=== PATIENT | male | born 1940 | race Caucasian/White ===

== ENCOUNTER 2016-11-17 12:26 | Inpatient (IN) | payer OTHER ==
[~2016-11-17] VITALS: Ht 170.2 cm; Wt 97.1 kg
--- NOTE | ~2016-11-17 | EKG ---
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
--- NOTE | ~2016-11-17 | H ---
[facility] [place] [address] HISTORY AND PHYSICAL Name: SELAM ROQUE Room #: 200-I [facility] IN ..#: [id number] Admission: 11/17/16 Attend Phys: Gabriel Ferrera MD Discharge: 11/20/16 Date of : 40 Report #: [id number] THIS REPORT FOR: //name// CC: Gabriel Ferrera DATE OF SERVICE: 11/17/2016 DATE OF SERVICE: 11/17/2016 CHIEF COMPLAINT: Swelling and shortness of air. HISTORY OF PRESENT ILLNESS: The patient is a 75-year-old male well known to me. He has been followed by Dr. Noriega recently with some congestive heart failure, was treated with some increasing oral dose of Lasix, did not get adequate results. He is having persistent swelling and shortness of air shortness of air. He has denied any chest pain. PAST MEDICAL HISTORY: Significant for: 1. Coronary artery disease with bypass graft in 1983. 2. Hypertension. 3. Sleep apnea. 4. Peripheral vascular disease with stents x 2. 5. Aortic stent in 2006. 6. Hyperlipidemia. 7. IVC occlusion. 8. Prior compression fracture. MEDICATIONS: Include Savaysa 60 mg a day, Klonopin 0.5 mg at bedtime, diclofenac 75 mg b.i.d., Symbicort 2 puffs b.i.d., Zoloft 100 mg a day, hydrocodone p.r.n. pain, Lasix 40 mg a day, Accupril 20 mg a day, aspirin 81 mg a day, potassium 10 mEq a day, multivitamin daily, omega-3 fish oil daily, Protonix 40 mg a day, primidone 50 mg a day, simvastatin 20 mg a day, Hytrin 5 mg a day. ALLERGIES: No known drug allergies. SOCIAL HISTORY: Nonsmoker, nondrinker, no recreational drugs. REVIEW OF SYSTEMS: CONSTITUTIONAL: No fever or chills. HEENT: No headaches or visual changes. CHEST: No tightness in the chest. He does have shortness of breath, no sputum production. GASTROINTESTINAL: No nausea, vomiting, diarrhea or constipation. GENITOURINARY: No burning or frequency. EXTREMITIES: The massive swelling and the tingling. [address] [address] HISTORY AND PHYSICAL Name: ROSALIEKIRILLALTAGRACIAMACO Hasmukh [facility] [id number] Admission: 11/17/16 Attend Phys: Gabriel Ferrera MD Discharge: 11/20/16 Date of : 40 Report #: [id number] PHYSICAL EXAMINATION: VITAL SIGNS: In the ER, blood pressure 150/73, pulse was 70, respiratory rate 16 and O2 sat 100% on room air. He is afebrile. GENERAL: The patient is awake, alert, in no acute distress. HEENT: His mucous membranes are moist. NECK: Supple, without adenopathy, thyromegaly or bruits. CHEST: Shows basilar crackles. CARDIOVASCULAR: Regular, no murmur. ABDOMEN: Obese with soft, no masses. Bowel sounds are active. EXTREMITIES: Show 3+ edema. Pulses are intact. SKIN: Shows no skin tears. LABORATORY DATA: EKG showed a sinus rhythm, rate of 60, no ST segment changes. WBC 6.3, hemoglobin 13.7, hematocrit 41.0, platelet count 216, 78 segs, 12 lymphs. ASSESSMENT AND PLAN: 1. Acute systolic heart failure on chronic. He is going to be admitted, started on IV Lasix drip. Consulted cardiology for his recommendation. We will start the drip and we will follow electrolytes. We will get chemistry panel and BNP which are pending. 2. 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 We will consult Dr. Mcclelland to evaluate this as well. 3. Anxiety. We will resume his home medications. 4. Hypertension. We will monitor blood pressure on the Lasix drip. <ELECTRONICALLY SIGNED> By: Gabriel Ferrera MD 11/23/16 1250 1450 1518 Gabriel Ferrera MD /nt
[~2016-11-17 12:26] MED LIST changes: -ALDACTONE25 MG PO; -ALTACE10 MG PO; -CARVEDILOL3.125 MG PO; -CLONAZEPAM 1 MG1 M1 PO; -DEMADEX20 MG PO; -DESMOPRESSIN A0.2 M2 PO; -KLONOPIN0.5 MG PO
[2016-11-17 12:27] VITALS: BP 150/73
[2016-11-17 13:15] LABS: ABSOLUTE NEUTROPHILS 4.9 thou/uL (1.4-8.2); BASOPHILS 0.7 % (0.0-2.0); EOSINOPHILS 0.6 % (0.0-3.0); HEMOGLOBIN 13.7 gm/dL (14.0-18.0); LYMPHOCYTES 12.4 % (24.0-44.0); MANUAL DIFF NO; MCH 30.4 pg (26.0-34.0); MCHC 33.3 % (28.0-37.0); MCV 91.3 fL (80.0-100.0); MONOCYTES 8.3 % (1.0-8.0); PLATELET COUNT 216 thou/uL (150-400); WBC 6.3 thou/uL (4.0-11.0)
[2016-11-17 13:31] VITALS: BP 158/99
[2016-11-17 13:40] LABS: ALKALINE PHOSPHATASE 75 U/L (46-116); ANION GAP 9 mmol/L (7-16); BUN 34 mg/dL (7-18); CALCIUM 8.9 mg/dL (8.5-10.1); CHLORIDE 99 mmol/L (98-107); CO2 27 mmol/L (21-32); GLUCOSE 89 mg/dL (70-99); NT-PRO BRAIN NAT PEPTIDE 107 pg/mL (<300); SGOT 20 U/L (15-37); SGPT 14 U/L (30-65); SODIUM 135 mmol/L (136-145); TOTAL BILIRUBIN 0.6 mg/dL (<0.1-1.0); TOTAL PROTEIN 6.7 g/dL (6.4-8.2); TROPONIN-I < 0.04 ng/mL (<0.04-0.07)
[2016-11-17 13:47] LABS: ALBUMIN 3.6 g/dL (3.4-5.0)
[2016-11-17 14:00] VITALS: BP 118/61
[2016-11-17] MEDS ORDERED: CLONAZEPAM 1 MG1 M1 PO (14:57)
[2016-11-17] MEDS ORDERED: KLONOPIN0.5 MG PO (14:59)
[2016-11-17] MEDS ORDERED: ALDACTONE25 MG PO (15:08)
[2016-11-17] MEDS ORDERED: DEMADEX20 MG PO (15:09)
[2016-11-17 17:00] VITALS: BP 111/52; BP 111/57
[2016-11-17 19:02] VITALS: BP 119/62
[2016-11-18 00:06] VITALS: BP 114/69
[2016-11-18 03:15] VITALS: BP 107/62
[2016-11-18 04:13] LABS: CALCIUM 8.9 mg/dL (8.5-10.1); CREATININE 1.5 mg/dL (0.6-1.3)
[2016-11-18 07:20] VITALS: BP 128/59
[2016-11-18 16:15] VITALS: BP 86/40
[2016-11-18 18:14] VITALS: BP 113/54
[2016-11-18 19:30] VITALS: BP 17/42
[2016-11-19] VITALS: BP 100/48
[2016-11-19 03:30] VITALS: BP 101/50
[2016-11-19 07:35] VITALS: BP 123/48
[2016-11-19 09:33] LABS: CREATININE 1.8 mg/dL (0.6-1.3); POTASSIUM 3.3 mmol/L (3.5-5.1)
[2016-11-19] MEDS ORDERED: DEMADEX20 MG PO (09:36)
[2016-11-19] MEDS ORDERED: CARVEDILOL3.125 MG PO (09:36)
[2016-11-19] MEDS ORDERED: ALTACE10 MG PO (09:36)
[2016-11-19 11:10] VITALS: BP 99/46
[2016-11-19 15:30] VITALS: BP 116/54
[2016-11-19 19:21] VITALS: BP 120/59
[2016-11-20 04:06] VITALS: BP 119/57
[2016-11-20 04:24] LABS: CALCIUM 9.1 mg/dL (8.5-10.1); CREATININE 1.4 mg/dL (0.6-1.3); POTASSIUM 3.9 mmol/L (3.5-5.1)
[2016-11-20 07:05] VITALS: BP 136/62
[2016-11-20 11:50] VITALS: BP 140/65
[2016-11-20 14:41] VITALS: BP 140/65
[2016-12-14] MEDS ORDERED: DESMOPRESSIN A0.2 M2 PO (17:05)
== END 2016-11-20 16:43 | disposition home health service (06) | DRG 682 ==
LOC: ER 12:26 → EROBS 12:48 → 2N 12:48
PROVIDERS: Emergency Medicine; Family Medicine
PROC: 5A09457 Assistance with Respiratory Ventilation, 24-96 Consecutive Hours, Continuous Positive Airway Pressure (ICD-10-PCS; principal; 2016-11-18)
DX: N17.9 Acute kidney failure, unspecified (principal); I50.23 Acute on chronic systolic (congestive) heart failure; I42.9 Cardiomyopathy, unspecified; I73.9 Peripheral vascular disease, unspecified; I11.0 Hypertensive heart disease with heart failure; I87.2 Venous insufficiency (chronic) (peripheral); E78.00 Pure hypercholesterolemia, unspecified; E87.6 Hypokalemia; I65.29 Occlusion and stenosis of unspecified carotid artery; I25.10 Atherosclerotic heart disease of native coronary artery without angina pectoris; E78.5 Hyperlipidemia, unspecified; F41.9 Anxiety disorder, unspecified; Z95.1 Presence of aortocoronary bypass graft; Z79.899 Other long term (current) drug therapy; Z98.890 Other specified postprocedural states; Z95.5 Presence of coronary angioplasty implant and graft
CPT/HCPCS: 10194

== ENCOUNTER → 2016-11-17 | Outpatient (CLI) | payer OTHER ==
[~2016-11-17] MED LIST: ALDACTONE25 MG PO; ALTACE10 MG PO; ASPIR 8181 MG PO; ASPIRIN325 PO; CARVEDILOL3.125 MG PO; CENTRUM SILVER1 EAC2 PO; CLONAZEPAM 1 MG1 M1 PO; CLONAZEPAM PO; COUMADIN; DEMADEX20 MG PO; DESMOPRESSIN A0.2 M2 PO; DICLOFENAC SODI75 M1 PO; FLOMAX PO; FUROSEMIDE 40 M40 M1 PO; HYTRIN 5 M5 MG/1 CAP PO; KETOCONAZOLE60 GM TP; KLONOPIN0.5 MG PO; KLOR-CON 1010 MEQ PO; KLOR-CON PO; NORCO 5-325 TA1 EACH PO; OMEGA-31000 M1 PO; PRIMIDONE50 MG PO; PROTONIX40 M1 PO; QUINAPRIL 20 MG20 MG PO; SAVAYSA60 MG PO; SYMBICORT160 MCG/4. INH; ZOCOR 20 MG TAB20 M1 PO; ZOCOR20 MG PO; ZOLOFT50 MG PO
[2016-11-17 10:36] LABS: ABSOLUTE NEUTROPHILS 5.5 thou/uL (1.4-8.2); BASOPHILS 0.7 % (0.0-2.0); HEMATOCRIT 40.3 % (42.0-52.0); HEMOGLOBIN 13.5 gm/dL (14.0-18.0); LYMPHOCYTES 11.4 % (24.0-44.0); MCH 30.4 pg (26.0-34.0); MCHC 33.4 % (28.0-37.0); MCV 90.9 fL (80.0-100.0); MONOCYTES 7.9 % (1.0-8.0); PLATELET COUNT 234 thou/uL (150-400); RBC 4.43 mil/uL (4.50-6.00); RDW 14.9 % (10.5-14.5)
[2016-11-17 10:37] LABS: MANUAL DIFF NO
[2016-11-17 10:49] LABS: CALCIUM 9.1 mg/dL (8.5-10.1); CREATININE 1.3 mg/dL (0.6-1.3); POTASSIUM 4.4 mmol/L (3.5-5.1)
== END ==
LOC: CAT 10:01
PROVIDERS: Nuclear Medicine Nuclear Cardiology
DX: R10.2 Pelvic and perineal pain (principal); R14.0 Abdominal distension (gaseous); R10.30 Lower abdominal pain, unspecified

== ENCOUNTER 2016-11-21 21:47 | Inpatient (IN) | payer OTHER ==
[~2016-11-21] VITALS: Ht 170.2 cm; Wt 92.5 kg
--- NOTE | ~2016-11-21 | EKG ---
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
--- NOTE | ~2016-11-21 | HC ---
[facility] [place] [address] CONSULTATION Name: SELAM ROQUE Room #: 429-P [facility] IN .R.#: [id number] Admission: 11/22/16 Attend Phys: Gabriel Ferrera MD Discharge: 11/24/16 Date of : 40 Report #: [id number] THIS REPORT FOR: //name// CC: Gabriel Ferrera DATE OF SERVICE: 11/24/2016 ATTENDING PHYSICIAN: Rick Osorio M.D. RADIO TOWER TECHNICIAN: Gabriel Banks, PhD. CLINICAL PRESENTATION: The patient is a 75-year-old male admitted to [facility] for evaluation and treatment of orthostatic hypotension with worsening acute kidney injury. He was initially admitted to the [facility] Center for evaluation and treatment of heart failure with edema. He was discharged home. However, his condition exacerbated as a result of 2 syncopal episodes. He was subsequently brought back to the hospital for evaluation and treatment. PAST MEDICAL HISTORY: Includes chronic peripheral edema, hypertension, peripheral vascular disease with iliac stents, hyperlipidemia, anxiety, sleep apnea, coronary artery disease status post bypass grafting, melanoma of the face, diastolic heart failure, inferior vena cava occlusion, and prior kyphoplasty at L1. A complete description of his medical condition and history along with medications can be found in his medical record. Neuropsychological consultation was requested to provide assistance in the assessment of cognitive and emotional status and to provide recommendations and services. Prior to this deterioration in his medical condition, he was living independently at home with his . The patient has 4 children. He has 2 sisters. He is a high school graduate. 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 A longstanding history of anxiety disorder is described. The patient has a history of depression that he was treated for in the past. He indicates having been in an eating disorder unit at the [facility] in 1987. The patient was morbidly obesity. His weight looks within normal limits at this time. TECHNIQUES UTILIZED: Clinical interview, review of medical records, staff consultation and behavioral observation. EXAMINATION FINDINGS: The patient was alert and cooperative with the assessment. There is no evidence of aphasia. His thoughts were logical and goal oriented. There is no evidence of thought disorder. He does not report auditory or visual hallucinations. There is no report of suicidal ideation. He indicates a subjective anxiety in regard to his wellbeing. He is going to a [facility] [address] [place] [address] CONSULTATION Name: SELAM ROQUE Room #: 429-P [facility] IN ..#: [id number] Admission: 11/22/16 Attend Phys: Gabriel Ferrera MD Discharge: 11/24/16 Date of : 40 Report #: [id number] more longer term snf placement from the hospital and was hoping to be able to return home. The patient does appear to be anxious in regard to his cognitive function. He does not report concern about cognition, however, uncertainty about the memory is suggested by his presentation. A formal and cognitive assessment was not completed. He does not report difficulty with sleep, appetite, or memory. However, he does acknowledge difficulty with word finding. Tiredness and fatigue is also suggested along with increase in irritability. DIAGNOSTIC IMPRESSION: 1. Anxiety disorder, unspecified with depression. 2. Possible neurocognitive disorder - extent to be determined. RECOMMENDATIONS: Continued psychological services upon his discharge will likely be of benefit. The patient should also arrange for an outpatient assessment of neuropsychological testing. Clarification of neurocognitive status is suggested at this time. Thank you very much for allowing me to provide the consultation on this patient. <ELECTRONICALLY SIGNED> By: Gabriel Banks, PhD 12/03/16 1918 1830 0809 Garbiel Banks, PhD /nt
--- NOTE | ~2016-11-21 | H ---
[facility] [place] [address] HISTORY AND PHYSICAL Name: SELAM ROQUE Room #: 429-P [facility] IN .R.#: [id number] Admission: 11/22/16 Attend Phys: Gabriel Ferrera MD Discharge: Date of : 40 Report #: [id number] THIS REPORT FOR: //name// CC: Gabriel Ferrera DATE OF SERVICE: 11/22/2016 CHIEF COMPLAINT: Syncope. HISTORY OF PRESENT ILLNESS: The patient is a 75-year-old male who had just been discharged on the after a short stay for heart failure and edema and diuresed. He had had some mild BRANDON and orthostasis before he left but that actually improved, and he was ambulating well. His pressures were stable and his creatinine improved prior to discharge. Apparently after discharging to home, he had 2 syncopal events. The first time, 911 was called, and he refused to come to the hospital. The patient put himself back to bed. He got up another time to go to the bathroom and had another syncopal event. The patient was brought to the hospital for evaluation of this syncope. The patient states he had been eating at the time. PAST MEDICAL HISTORY: Significant for: 1. Chronic peripheral edema. 2. Hypertension. 3. Peripheral vascular disease with iliac stents. 4. Hyperlipidemia. 5. Anxiety. 6. Sleep apnea. 7. Coronary artery disease, status post bypass grafting. 8. Melanoma of his face recently. 9. Diastolic heart failure. 10. Inferior vena cava occlusion. 11. Prior kyphoplasty at L1. MEDICATIONS: Hydrocodone p.r.n. pain, Savaysa 60 mg a day, clonazepam 1 mg at bedtime and 0.5 mg p.r.n., Aldactone 25 mg a day, torsemide 20 mg a day, diclofenac 75 mg b.i.d., Zoloft 100 mg a day, aspirin 81 mg a day, primidone 50 mg a day, simvastatin 20 mg a day and terazosin 5 mg a day. ALLERGIES: No known drug allergies. SOCIAL HISTORY: He is a nonsmoker and nondrinker, lives independently. REVIEW OF SYSTEMS: CONSTITUTIONAL: No fevers or chills. HEENT: No headaches or visual changes. [address] [address] HISTORY AND PHYSICAL Name: SELAM ROQUE Hasmukh Room #: 429-P [facility] IN [facility].#: [id number] Admission: 11/22/16 Attend Phys: Gabriel Ferrera MD Discharge: Date of : 40 Report #: [id number] CHEST: No chest pain, tightness in his chest, shortness of breath, cough or sputum production. GASTROINTESTINAL: No nausea or vomiting. GENITOURINARY: No burning or frequency. EXTREMITIES: No new trauma. He does have the chronic edema, which is unchanged. His pulses are intact. Feet are warm. PHYSICAL EXAMINATION: VITAL SIGNS: His blood pressure was 122/56 but he dropped down with standing to 100/50. His pulse was 53, his respiratory rate was 12. He is afebrile, O2 sats 100%. GENERAL: He is currently sleeping with his nasal BiPAP on. He does arouse, but is in no acute distress. HEENT: His mucous membranes are moist. NECK: Supple without adenopathy, thyromegaly or bruits. CHEST: Clear to auscultation bilaterally. CARDIOVASCULAR: Regular rhythm without murmur. ABDOMEN: Soft, no masses. Bowel sounds are active. He is obese. There is no hepatosplenomegaly. EXTREMITIES: Showed chronic edema with venous insufficiency changes, no new wounds, no worsening of edema. DIAGNOSTIC DATA: His EKG showed a sinus rhythm with a rate of 50, first degree AV block, no acute ischemic changes. LABORATORY DATA: Sodium 136, potassium 3.9, chloride 96, bicarbonate 31, BUN 42, creatinine 2.0, which is increased from the day before at 1.4, glucose is 139. Mag is 2.3, AST 28, ALT 40, alkaline phosphatase 95. CK-MB is 1.8. Troponin is less than 0.04. BNP 373. Albumin 3.8. WBC is 15.7, hemoglobin 14.0, hematocrit 42.5, platelet count 267, 89 segs and 6 lymphs. Chest x-ray shows no acute change. ASSESSMENT: Orthostatic hypotension with worsening acute kidney injury. PLAN: We will go ahead and admit the patient. We will start him on IV fluids and hold his diuretics. I suspect this should recover with proper hydration. He will clearly need to go to a skilled unit, however, in light of his recurrent syncope. We will resume his other home meds for his chronic conditions. <ELECTRONICALLY SIGNED> By: Gabriel Ferrera MD 11/23/16 1250 0648 0833 Gabriel Ferrera MD /nt
[~2016-11-21 21:47] MED LIST changes: +ALDACTONE25 MG PO; +ALTACE10 MG PO; +CARVEDILOL3.125 MG PO; +CLONAZEPAM 1 MG1 M1 PO; +DEMADEX20 MG PO; +KLONOPIN0.5 MG PO
[2016-11-21 21:48] VITALS: BP 122/56
[2016-11-21 22:09] LABS: HEMATOCRIT 42.5 % (42.0-52.0); MCH 30.1 pg (26.0-34.0); MCV 91.2 fL (80.0-100.0); PLATELET COUNT 267 thou/uL (150-400); RBC 4.66 mil/uL (4.50-6.00); RDW 14.5 % (10.5-14.5); WBC 15.7 thou/uL (4.0-11.0)
[2016-11-21 22:14] LABS: MANUAL DIFF YES
[2016-11-21 22:31] LABS: ALBUMIN 3.8 g/dL (3.4-5.0); ALKALINE PHOSPHATASE 95 U/L (46-116); ANION GAP 9 mmol/L (7-16); BUN 42 mg/dL (7-18); CALCIUM 9.3 mg/dL (8.5-10.1); CHLORIDE 96 mmol/L (98-107); CO2 31 mmol/L (21-32); GLUCOSE 139 mg/dL (70-99); MAGNESIUM 2.3 mg/dL (1.8-2.4); NT-PRO BRAIN NAT PEPTIDE 373 pg/mL (<300); POTASSIUM 3.9 mmol/L (3.5-5.1); SGOT 28 U/L (15-37); SGPT 40 U/L (30-65); SODIUM 136 mmol/L (136-145); TOTAL BILIRUBIN 0.7 mg/dL (<0.1-1.0); TOTAL PROTEIN 7.5 g/dL (6.4-8.2); TROPONIN-I < 0.04 ng/mL (<0.04-0.07)
[2016-11-21 23:51] LABS: TOTAL CELL COUNT 100
[2016-11-22] VITALS (11 sets, daily range): BP systolic 89–171; BP diastolic 39–64
[2016-11-23 05:00] VITALS: BP 112/32
[2016-11-23 05:46] LABS: CALCIUM 8.4 mg/dL (8.5-10.1); CREATININE 1.2 mg/dL (0.6-1.3); POTASSIUM 4.1 mmol/L (3.5-5.1)
[2016-11-23 08:26] VITALS: BP 141/65
[2016-11-23 17:05] VITALS: BP 137/42
[2016-11-23 20:00] VITALS: BP 132/38
[2016-11-24 04:46] VITALS: BP 152/58
[2016-11-24 07:56] VITALS: BP 173/58
[2016-12-14] MEDS ORDERED: DESMOPRESSIN A0.2 M2 PO (17:05)
== END 2016-11-24 16:52 | DRG 682 ==
LOC: ER 21:47 → EROBS 23:33 → ER 23:33 → 4E 11-22 00:29
PROVIDERS: Emergency Medicine; Family Medicine
DX: N17.9 Acute kidney failure, unspecified (principal); I50.33 Acute on chronic diastolic (congestive) heart failure; I13.0 Hypertensive heart and chronic kidney disease with heart failure and stage 1 through stage 4 chronic kidney disease, or unspecified chronic kidney disease; I95.1 Orthostatic hypotension; E86.9 Volume depletion, unspecified; I25.10 Atherosclerotic heart disease of native coronary artery without angina pectoris; N18.9 Chronic kidney disease, unspecified; F32.9 Major depressive disorder, single episode, unspecified; I73.9 Peripheral vascular disease, unspecified; G47.30 Sleep apnea, unspecified; E78.5 Hyperlipidemia, unspecified; F41.9 Anxiety disorder, unspecified; I87.2 Venous insufficiency (chronic) (peripheral); Z79.899 Other long term (current) drug therapy; Z95.1 Presence of aortocoronary bypass graft; Z79.82 Long term (current) use of aspirin
CPT/HCPCS: 10183

== ENCOUNTER 2017-01-26 09:32 | Inpatient (IN) | payer OTHER ==
[~2017-01-26] VITALS: Ht 170.2 cm; Wt 83.7 kg
[2017-01-26] VITALS (7 sets, daily range): BP systolic 130–179; BP diastolic 43–68
--- NOTE | ~2017-01-26 | HC ---
[facility] [place] [address] CONSULTATION Name: SELAM ROQUE Room #: 419-P [facility] IN ..#: [id number] Admission: 01/26/17 Attend Phys: Gabriel Ferrera MD Discharge: Date of : 40 Report #: [id number] THIS REPORT FOR: //name// CC: Gabriel Ferrera GI CONSULTATION REASON FOR CONSULTATION: Rectal bleeding. HISTORY OF PRESENT ILLNESS: The patient is a 76-year-old white male with multiple medical problems, admitted 01/26/2017 with increased weakness and healthcare-associated pneumonia. He is primarily bedridden and during his hospitalization with straining was able to have a bowel movement yesterday with bright red blood per rectum noted by nursing staff. He would not have noted any problems with rectal bleeding prior to his admission. He does struggle with constipation as his activity is limited. He has no significant abdominal pain. He does not well recall timing of his last colonoscopy that was done many years ago, but was advised that he would not need another one. He is unaware of any previous history of GI bleeding in the past. PAST MEDICAL HISTORY: He does have multiple medical problems including coronary artery disease leading to previous coronary artery bypass surgery in 1983. He does have peripheral vascular disease and had undergone iliac and aortic stent placement in December 2006. He may also have undergone additional iliac stents. He does have hypertension, hyperlipidemia, chronic anxiety, recent suicidal ideation, congestive heart failure, sleep apnea, coronary venous insufficiency. He has a history of melanoma. HOME MEDICATIONS: [place] one tablet q. 6 hours p.r.n., Savaysa (edoxaban) 60 mg per day, clonazepam 1 mg at bedtime and 0.5 mg p.r.n., Lexapro 20 mg per day, Demadex 20 mg p.o. b.i.d., tramadol 50 mg p.r.n., aspirin 81 mg per day, primidone 50 mg per day, simvastatin 20 mg per day. CURRENT MEDICATIONS: During this hospitalization include pantoprazole 40 mg IV b.i.d. started January 31, primidone 50 mg p.o. at bedtime, clonazepam 1 mg at bedtime, citalopram 20 mg at bedtime, aspirin 81 mg each day, Zosyn 3.375 grams IV q. 6 hours, torsemide 20 mg p.o. b.i.d., clonazepam 0.5 mg per day, hydrocodone with acetaminophen p.r.n., Zofran p.r.n. ALLERGIES: No known drug allergies. SOCIAL HISTORY: He does not currently smoke cigarettes or drink alcohol. REVIEW OF SYSTEMS: He has had no documented fevers or chills. He feels very weak, but does not have significant shortness of breath, wheezing or cough. He has had no significant chest pain. He has [place] [address] CONSULTATION Name: ROSALIEKIRILLSELAM Room #: 419-P [facility] IN M.R.#: [id number] Admission: 01/26/17 Attend Phys: Gabriel Ferrera MD Discharge: Date of : 40 Report #: [id number] He denies nausea or vomiting. He does have chronic peripheral edema. He has chronic knee pain and has had frequent falls and would state that he is limited to his bed at this time. PHYSICAL EXAMINATION: GENERAL: He appears elderly in no acute distress at rest in bed, afebrile. VITAL SIGNS: Blood pressure 130/76, pulse 63. HEENT: No scleral icterus. HEART: Rate and rhythm regular. LUNGS: Clear to auscultation. ABDOMEN: Soft, mildly obese with no obvious hepatosplenomegaly or palpable mass. No obvious abdominal bruits are noted. EXTREMITIES: He has no focal abdominal pain. He does have 1-2+ peripheral edema with brawny skin changes of the lower extremities. LABORATORY STUDIES: On January 26, white blood cell count 7200, hemoglobin 15.5, platelet count 290,000. Hemoglobin did decrease to 13.8 on January 30. IMPRESSION: 1. Rectal bleeding after straining and problems with constipation likely represents rectal outlet bleeding, although all other causes for lower GI bleeding remain in the differential. 2. Healthcare-associated pneumonia. 3. Weakness with very limited mobility. 4. Peripheral vascular disease. 5. Coronary artery disease with previous bypass surgery. RECOMMENDATIONS: 1. Monitor symptoms and blood counts after resolution of constipation. 2. Continued rectal bleeding. Further evaluation might be considered understanding potential risks involved with multiple other associated medical problems. By: [id number] Morgan Rico MD /nt
--- NOTE | ~2017-01-26 | H ---
[facility] [place] [address] HISTORY AND PHYSICAL Name: SELAM ROQUE Room #: 419-P [facility] IN M.R.#: [id number] Admission: 01/26/17 Attend Phys: Gabriel Ferrera MD Discharge: 02/03/17 Date of : 40 Report #: [id number] THIS REPORT FOR: //name// CC: Gabriel Ferrera DATE OF SERVICE: 01/26/2017 CHIEF COMPLAINT: Weakness. HISTORY OF PRESENT ILLNESS: The patient is a 76-year-old male, well known to me, who states he has not been feeling well for the last several days. He had been not out of the bed for over 48 hours per his family. He states he had fallen a couple of times, had some left knee pain. He had just became very weak, was urinating on himself, could not get out of bed. The patient also had been apparently having suicidal thoughts. He had been searching in the internet for weapons and ways to hurt himself. He had been hospitalized not too long ago with frequent falls and diastolic heart failure. He denies any chest pain at this time. He does have more shortness of breath. There was some concern over some frontal lobe dementia and he was supposed to be seen by Neurology in the outpatient setting on the , but he could not make it. PAST MEDICAL HISTORY: Significant for: 1. Hypertension. 2. Congestive heart failure. 3. Coronary bypass grafting. 4. Poor sleep apnea. 5. Peripheral vascular disease. 6. Iliac and aortic stents. 7. Rotator cuff repair. 8. Chronic venous insufficiency after his CABG. 9. Hyperlipidemia. 10. IVC occlusion. 11. Anxiety. 12. Peripheral artery disease. 13. Recent melanoma on right side of his face. CURRENT MEDICATIONS: Carvedilol 3.125 mg b.i.d.; Altace 10 mg a day; [place] p.r.n.; Savaysa 60 mg a day; clonazepam 1 mg a day, 0.5 mg p.r.n.; Lexapro 20 mg a day; Demadex 20 mg b.i.d.; Ultram 50 mg a day; aspirin 81 mg a day; Primidone 50 mg b.i.d.; simvastatin 20 mg a day. ALLERGIES: No known drug allergies. SOCIAL HISTORY: He does live with his . He is a nonsmoker and nondrinker. No recreational drugs. [address] [address] HISTORY AND PHYSICAL Name: SELAM ROQUE Hasmukh Room #: 419-P [facility]#: [id number] Admission: 01/26/17 Attend Phys: Gabriel Ferrera MD Discharge: 02/03/17 Date of : 40 Report #: [id number] REVIEW OF SYSTEMS: CONSTITUTIONAL: No fevers or chills. HEENT: No headaches or visual change. CHEST: He denies any chest pains or cough. GASTROINTESTINAL: No nausea, vomiting, diarrhea or constipation. GENITOURINARY: No burning or frequency, but he does have incontinence. EXTREMITIES: He has chronic swelling and knee pain. SKIN: No new wounds or rashes. NEUROLOGIC: He has generalized confusion, irritability, suicidal thoughts. No focal numbness or weakness. PHYSICAL EXAMINATION: VITAL SIGNS: In the ER, blood pressure 169/64, pulse was 57, respiratory rate 11, O2 sat was 93%. At the time of my evaluation, he had a flat affect. GENERAL: The patient is awake and alert. He denied any focal complaints other than just weakness. HEENT: Mucous membranes are dry. NECK: Supple without adenopathy, thyromegaly or bruits. CHEST: Clear to auscultation anteriorly, but has decreased breath sounds in the bases. CARDIOVASCULAR: Regular rhythm without murmur. ABDOMEN: Soft and obese. No masses. Bowel sounds are active. EXTREMITIES: 3+ edema bilaterally, which is chronic. Chronic venous insufficiency changes. There are some contusions on the right knee, they are 3 to 5 days old. Pulses are intact. Sensory is grossly intact. Motor is grossly intact. DIAGNOSTIC DATA: EKG showed a sinus rhythm at rate of 59, first-degree AV block, no ST segment changes. LABORATORY DATA: His TSH is 1.8. His urinalysis was unremarkable. Sodium 143, potassium 3.9, chloride 106, bicarbonate 32, BUN 23, creatinine 1.4, glucose 90, lactic acid was 1.4 and calcium 9.4. Total bilirubin 0.7, AST 14, ALT 15, alkaline phosphatase 130. CPK 60. Troponin less than 0.04. Total protein 7.3, albumin 2.4. WBC is 7.2, hemoglobin 15.5, hematocrit 45.5, platelet count 290. CT of the head shows no acute midline shift or mass effect. There is possibility of a subacute chronic ischemic infarct in the left frontal lobe. Right knee shows some chronic degenerative changes and there is a markedly depressed ____ fracture, but appears chronic. His KUB shows no specific bowel pattern. There is a left lung infiltrate. Chest x-ray shows a moderate left lung infiltrate with effusion. ASSESSMENT AND PLAN: 1. Pneumonia, hospital acquired, ____ hospitalization. 2. 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 We will get neuro involved. May get an MRI. [address] [place] [address] HISTORY AND PHYSICAL Name: SELAM ROQUE Room #: 419-P [facility] IN M.R.#: [id number] Admission: 01/26/17 Attend Phys: Gabriel Ferrera MD Discharge: 02/03/17 Date of : 40 Report #: [id number] 3. Suicidal ideation. We will consult Psych. 4. Weakness. We will get PT and OT. <ELECTRONICALLY SIGNED> By: Gabriel Ferrera MD 02/07/1744 08 0845 Gabriel Ferrera MD /nt
--- NOTE | ~2017-01-26 | 2DMMODE ---
[facility] [place] [address] 2 D/M-MODE ECHOCARDIOGRAM Name: SELAM ROQUE Room #: 419-P [facility]#: [id number] Admission: 01/26/17 Attend Phys: Gabriel Ferrera, Discharge: Date of : 40 Date of Service: 01/27/17 1223 Report #: [id number] THIS REPORT FOR: //name// APPROVED REPORT Study performed: 01/27/2017 11:14:40 EXAM: Comprehensive 2D, Doppler, and color-flow Echocardiogram Patient Location: Bedside/Room 419 Blood Pressure: 141/66 mmHg HR: 67 bpm Other Information Study Quality: Adequate Indications Frequent falls. Hx: CABG, CHF, HTN, HLP 2D Dimensions RVDd: 34.40 mm LVEF(%): 53.24 (>50%) IVSd: 13.29 (7-11mm) LVOT Diam: 19.95 (18-24mm) LVDd: 48.19 mm PWd: 12.74 (7-11mm) Ascending Aorta: 30.70 mm LVDs: 34.96 (25-40mm) Aortic Root: 28.97 mm Tierney's LVEF: 53.24 % Volumes Left Atrial Volume (Systole) Single Plane 4CH: 31.33 mL Single Plane 2CH: 46.24 mL LA ESV Index: 22.00 mL/m2 Aortic Valve AoV Peak Dwayne.: 1.19 m/s AO Peak Gr.: 5.68 mmHg LV Max P.97 mmHg LV Max: 1.12 m/s Mitral Valve MV PHT: 121.59 ms MV E Max Dwayne.: 0.47 m/s E/A Ratio: 0.6 MV A Dwayne.: 0.75 m/s MV Decel. Time: 419.27 ms [facility] [place] [address] 2 D/M-MODE ECHOCARDIOGRAM Name: SELAM ROQUE Room #: 419-P [facility] IN .R.#: [id number] Admission: 01/26/17 Attend Phys: Gabriel Ferrera, Discharge: Date of : 40 Date of Service: 01/27/17 1223 Report #: [id number] Pulmonary Valve PV Peak Dwayne.: 1.36 m/s PV Peak Gr.: 7.38 mmHg Tricuspid Valve TR Peak Dwayne.: 2.50 m/s RAP Estimate: 5.00 mmHg TR Peak Gr.: 25.03 mmHg RVSP: 30.00 mmHg Left Ventricle The left ventricle is normal size. Mild concentric left ventricular hypertrophy. Left ventricular systolic function is normal. LVEF is 50-55%. Grade I - abnormal relaxation pattern. Right Ventricle Right ventricle is not well visualized. Atria The left atrium size is normal. The right atrium size is normal. Aortic Valve Aortic valve is calcified. No aortic regurgitation is present. There is no aortic valvular stenosis. Mitral Valve Mitral valve leaflets are mildly thickened. Mild mitral annular calcification. Trace mitral regurgitation. Tricuspid Valve The tricuspid valve is normal in structure. There is mild tricuspid regurgitation. The right atrial pressure is estimated at 5 mmHg. There is borderline mild pulmonary hypertension. Estimated PAP of 30mmHg. Pulmonic Valve Trace pulmonic regurgitation. Great Vessels The aortic root is normal in size. The ascending aorta is normal in size. The inferior vena cava is not well visualized. Pericardium There is no pericardial effusion. <Conclusion> The [place] [address] 2 D/M-MODE ECHOCARDIOGRAM Name: ROSALIEKIRILLALTAGRACIAMACO Hasmukh Room #: 419-P [facility] IN ..#: [id number] Admission: 01/26/17 Attend Phys: Gabriel Ferrera, Discharge: Date of : 40 Date of Service: 01/27/17 1223 Report #: [id number] LVEF is 50-55%. Aortic valve is calcified. Mitral valve leaflets are mildly thickened. Mild mitral annular calcification. There is mild tricuspid regurgitation. The right atrial pressure is estimated at 5 mmHg. There is borderline mild pulmonary hypertension. Estimated PAP of 30mmHg. Trace pulmonic regurgitation. <ELECTRONICALLY SIGNED> By: Herve Valenzuela MD 01/27/171222 22 22 Herve Valenzuela MD /INF
--- NOTE | ~2017-01-26 | EKG ---
[address] [place] [address] ELECTROCARDIOGRAM REPORT Name: SELAM ROQUE Room #: 419-P ADM IN M.R.#: [id number] Admission: 01/26/17 Attend Phys: Gabriel Ferrera MD Discharge: Date of : 40 Report #: [id number] THIS REPORT FOR: //name// [facility] ED Test Date: 2017-01-26 Test Time: 10:08:54 Pat Name: SELAM ROQUE Department: Room: [facility] Gender: M A&P Mechanic: MZOOK : 1940 Requested By: Gwen Betts Order Number: [id number] MD: Nick Fernandez Measurements Intervals [place] Rate: 59 P: 0 DC: 74 QRS: 18 QRSD: 100 T: 72 QT: 460 QTc: 456 Interpretive Statements Sinus rhythm Electronically Signed On 01-29-2017 12:55:00 CDT by Nick Fernandez [email or web address] <ELECTRONICALLY SIGNED> By: Nick Fernandez MD 01/29/17 1255 1008 1008 Nick Fernandez MD /MARCIO
--- NOTE | ~2017-01-26 | HC ---
[facility] [place] [address] CONSULTATION Name: SELAM ROQUE Room #: 419-P [facility] IN M.R.#: [id number] Admission: 01/26/17 Attend Phys: Gabriel Ferrera MD Discharge: 02/03/17 Date of : 40 Report #: [id number] THIS REPORT FOR: //name// CC: Gabriel Ferrera DATE OF SERVICE: 01/27/2017 HISTORY OF PRESENT ILLNESS: This gentleman has had some physical debilitation. He is struggling with the loss of independence and incresing reliance upon others. There has been some sleep disturbance. Denies loss of appetite. He admits to depression and he has been on a couple of different antidepressants with limited benefit. Family was increasingly concerned because of some internet searches they found on the computer the other day in particular researching ways somebody could harm themselves. He had also apparently asked somebody for a firearm. He is minimizing this now. Essentially offering "Ya I looked at it, but it was not for me." PAST PSYCHIATRIC HISTORY: There is a significant history of depression, he has not seen a psychiatrist before. His antidepressants have been managed by his primary care physician, Dr. Gabriel Ferrera. He has been on Zoloft in the past and most recently was on Lexapro, but was changed to Celexa here because a formulary constraints. ALLERGIES: No known drug allergies. PAST MEDICAL HISTORY: Hypertension, congestive heart failure, sleep apnea, hyperlipidemia, anxiety, peripheral arterial disease, history of melanoma. FAMILY HISTORY: Noncontributory. SOCIAL HISTORY: He is . He and his are in the household. He has had increasing physical limitations. CURRENT MEDICATIONS: Include primidone 50 at bedtime, Klonopin ____ mg at bedtime, Celexa 20 at bedtime, aspirin 81 daily, Zosyn 3.375 every 6 hours, torsemide 20 twice daily, Klonopin 0.5 daily. MENTAL STATUS EXAMINATION: male, casually dressed, depressed mood, restricted affect. Normal spontaneous speech, no formal thought disorder, suicidal ideation currently denying intent or plan. No homicidal ideations, no hallucinations, no delusions. Insight and judgment fair. DIAGNOSES: AXIS I: Major depressive disorder, recurrent, severe. AXIS II: Deferred. [address] [address] CONSULTATION Name: SELAM ROQUE Room #: 419-P [facility] IN .R.#: [id number] Admission: 01/26/17 Attend Phys: Gabriel Ferrera MD Discharge: 02/03/17 Date of : 40 Report #: [id number] AXIS III: See past medical history. AXIS IV: Severe. AXIS V: 30. RECOMMENDATIONS: 1. I would continue the 1:1 sitter. 2. At this time, I do not feel he could leave [facility], we will certainly decide with input from treatment team once workup is complete the next appropriate treatment environment. If he is accepted for a rehab setting, it is possible he could be monitored there by psychiatry; however, if we are looking at outpatient rehab or discharge home depending upon how much time has passed, may want to consider inpatient [facility] for a safer environment. I am contemplating changing to a different antidepressant perhaps an SNRI, but perhaps we can see what the increase on Lexapro does first. I going to see if he can get his home medication brought in as Lexapro is quite a bit more potent than Celexa and there are cardiac concerns about just simply increasing the citalopram dose to try to compensate.. We will also get input from Dr. Ferrera. <ELECTRONICALLY SIGNED> By: Miguel Santizo MD 02/06/17 1521 1300 [id number] Miguel Santizo MD /nt
--- NOTE | ~2017-01-26 | HC ---
[facility] [address] CONSULTATION Name: SELAM ROQUE Room #: 419-P ADM IN M.R.#: [id number] Admission: 01/26/17 Attend Phys: Gabriel Ferrera MD Discharge: Date of : 40 Report #: [id number] THIS REPORT FOR: //name// CC: Gabriel Ferrera HISTORY OF PRESENT ILLNESS: This 76-year-old frail gentleman is admitted for weakness and confusion and recent falls. He seems to have rather significant generalized degenerative arthritis involving the back and lower extremities. He states he has had moderate chronic discomfort in multiple areas with most severe pain involving the left knee. He notes he has been somewhat frail and weak and has had apparently several falls in the past few weeks. He was admitted for further assessment with regard to these various problems. I believe he has already had some extensive radiographic workup with CT or MRI of the head as well as MRI of the lumbar spine and x-rays of the left knee as well as a CT scan of the left knee. The MRI of the lumbar spine reveals rather significant and severe multilevel degenerative spondylosis which results in significant canal compromise and spinal stenosis at several levels. There is no evidence of new injury nor significant instability. X-rays and CT scan of the left knee revealed rather significant varus malalignment and significant collapse of the medial tibial plateau. This appears to be chronic with severe end-stage degenerative arthritis, but no evidence of any new fractures noted on either plain x-ray nor the CT scan. At the time of my evaluation, he is communicative, but seems a bit distant and possibly mildly confused. He states he has been able to ambulate at home up until recently, although with difficulty. He has been able to ambulate today in the shahid for a limited distance using a walker with moderate discomfort and with quite a bit of assistance. At this time, he denies any significant pain in the neck or back. He seems to have satisfactory movement of both upper extremities without obvious discomfort nor any neurologic deficit. The right lower extremity reveals limited movement of both the hip and the knee given his size and some joint crepitus. There is moderate edema about the right knee and some discomfort with movement and varus and valgus stress; however, the knee seems to be in satisfactory alignment and appears stable. The left lower extremity reveals limited movement of the hip. The left knee demonstrates rather significant varus malalignment. There is some correction with gentle manipulation, but the knee does not coming back to neutral. He notes discomfort with flexion and extension and there is quite a bit of joint crepitus consistent with 3 compartment degenerative change. The overlying skin is intact. The lower leg, foot and ankle demonstrate some edema, but he demonstrates satisfactory movement of the foot and ankle. There appears to be some generalized dysesthesia in both lower extremities, although this is not severe, I do not find other clear evidence of significant radiculopathy. 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 I do not feel there is evidence of a new fracture, but simply symptomatic aggravation with regard to these preexisting problems. He also has significant degenerative arthritis in the low back, which causes moderate multilevel spinal stenosis. This may contribute to his weakness and gait problems. I will need to talk further with his family about treatment options. Given his age and frail state, I suspect he is not a candidate for any surgical intervention. He will; however, have significant ongoing problems with the back and some balance issues, clearly the left knee is a major problem due to the deformity, but I do not think there is a new fracture, which requires protection. I think the only way to really change the knee in a significant fashion would be with total joint replacement and I doubt that he is a suitable candidate for this given the other comorbidity problems. At this point, I would allow him up to a chair or even ambulate with a walker with assistance to avoid falling. We can manage his subjective complaints with medications and assistance. I am happy to follow along and discuss with family other treatment options as they wish. <ELECTRONICALLY SIGNED> By: Rick Lee MD 01/31/17 1050 1716 0851 Rick Lee MD /nt
[~2017-01-26 09:32] MED LIST changes: +DESMOPRESSIN A0.2 M2 PO
[2017-01-26] MEDS ORDERED: LEXAPRO 10 MG T10 M1 PO (09:36)
[2017-01-26 09:55] LABS: ABSOLUTE NEUTROPHILS 5.8 thou/uL (1.4-8.2); BASOPHILS 0.6 % (0.0-2.0); EOSINOPHILS 0.5 % (0.0-3.0); HEMATOCRIT 45.5 % (42.0-52.0); HEMOGLOBIN 15.5 gm/dL (14.0-18.0); MCH 30.6 pg (26.0-34.0); MCHC 34.1 g/dL (28.0-37.0); MCV 89.9 fL (80.0-100.0); MONOCYTES 7.1 % (1.0-8.0); PLATELET COUNT 290 thou/uL (150-400); POLYS 80.8 % (36.0-66.0); RBC 5.07 mil/uL (4.50-6.00); RDW 14.5 % (10.5-14.5); WBC 7.2 thou/uL (4.0-11.0)
[2017-01-26 09:58] LABS: MANUAL DIFF NO
[2017-01-26 10:01] LABS: URINE BILIRUBIN NEGATIVE (Negative); URINE BLOOD NEGATIVE (Negative); URINE COLOR YELLOW; URINE GLUCOSE-RANDOM* NEGATIVE (Negative); URINE KETONES TRACE (Negative); URINE NITRITE NEGATIVE (Negative); URINE PROTEIN (DIPSTICK) NEGATIVE (Negative); URINE SPECIFIC GRAVITY 1.025 (1.003-1.035); URINE UROBILINOGEN 0.2 E.U./dl (0.2-1.0)
[2017-01-26 10:05] LABS: ANION GAP 5 mmol/L (7-16); BUN 23 mg/dL (7-18); CALCIUM 9.4 mg/dL (8.5-10.1); CHLORIDE 106 mmol/L (98-107); CO2 32 mmol/L (21-32); CREATININE 1.4 mg/dL (0.6-1.3); GLUCOSE 90 mg/dL (70-99); POTASSIUM 3.9 mmol/L (3.5-5.1); SODIUM 143 mmol/L (136-145)
[2017-01-26 10:22] LABS: ALBUMIN 3.4 g/dL (3.4-5.0); ALKALINE PHOSPHATASE 130 U/L (46-116); SGOT 14 U/L (15-37); SGPT 15 U/L (30-65); TOTAL BILIRUBIN 0.7 mg/dL (<0.1-1.0); TOTAL PROTEIN 7.3 g/dL (6.4-8.2); TROPONIN-I < 0.04 ng/mL (<0.04-0.07)
[2017-01-26] MEDS ORDERED: DEMADEX20 MG PO (14:02)
[2017-01-26] MEDS ORDERED: ULTRAM 50MG TAB50 MG PO (14:02)
[2017-01-26 16:20] LABS: CHOLESTEROL 153 mg/dL (<200); HDL CHOLESTEROL 51 mg/dL (>40); LDL CHOLESTEROL 83 mg/dL (<100); TRIGLYCERIDE 97 mg/dL (<150); VLDL 19 mg/dL (<40)
[2017-01-27 00:10] LABS: GLYCOHEMOGLOBIN (HGB A1C) 5.2 % (4.8-5.6)
[2017-01-27 04:11] LABS: FREE T4 1.09 ng/dL (0.82-1.77)
[2017-01-27 05:48] VITALS: BP 159/70
[2017-01-27 07:35] VITALS: BP 141/66
[2017-01-27 16:07] VITALS: BP 125/63
[2017-01-27 19:55] VITALS: BP 122/62
[2017-01-28 04:00] VITALS: BP 132/75
[2017-01-28 07:10] VITALS: BP 151/68
[2017-01-28 16:18] VITALS: BP 151/75
[2017-01-28 19:48] VITALS: BP 143/69
[2017-01-29 04:01] VITALS: BP 144/63
[2017-01-29 07:28] VITALS: BP 154/70
[2017-01-29 15:56] VITALS: BP 130/68
[2017-01-29 20:00] VITALS: BP 115/71
[2017-01-30 04:00] VITALS: BP 159/72
[2017-01-30 07:44] VITALS: BP 136/76
[2017-01-30] MEDS ORDERED: MYRBETRIQ50 MG PO (08:09)
[2017-01-30] MEDS ORDERED: AUGMENTIN 875875 MG PO (08:10)
[2017-01-30 15:11] LABS: HEMATOCRIT 41.9 % (42.0-52.0); HEMOGLOBIN 13.8 gm/dL (14.0-18.0); MCH 30.2 pg (26.0-34.0); MCV 91.5 fL (80.0-100.0); RBC 4.58 mil/uL (4.50-6.00); RDW 14.8 % (10.5-14.5); WBC 9.2 thou/uL (4.0-11.0)
[2017-01-30 20:00] VITALS: BP 148/2
[2017-01-31 04:30] VITALS: BP 136/72
[2017-01-31 07:54] VITALS: BP 130/76
[2017-01-31 11:20] VITALS: BP 144/74
[2017-01-31 16:00] VITALS: BP 157/70
[2017-01-31 20:00] VITALS: BP 169/78
[2017-02-01 04:30] VITALS: BP 159/74
[2017-02-01 04:46] LABS: HEMATOCRIT 42.1 % (42.0-52.0); HEMOGLOBIN 13.9 gm/dL (14.0-18.0); MCH 29.8 pg (26.0-34.0); MCV 90.4 fL (80.0-100.0); RBC 4.66 mil/uL (4.50-6.00); RDW 15.1 % (10.5-14.5); WBC 11.3 thou/uL (4.0-11.0)
[2017-02-01 07:28] VITALS: BP 166/91
[2017-02-01 13:30] LABS: HEMATOCRIT 42.5 % (42.0-52.0); HEMOGLOBIN 14.2 gm/dL (14.0-18.0)
[2017-02-01 15:45] VITALS: BP 129/64
[2017-02-01 20:00] VITALS: BP 121/48
[2017-02-02 04:00] VITALS: BP 124/50
[2017-02-02 07:08] VITALS: BP 151/62
[2017-02-02 09:39] LABS: HEMATOCRIT 39.9 % (42.0-52.0); HEMOGLOBIN 13.4 gm/dL (14.0-18.0); MCH 30.4 pg (26.0-34.0); MCHC 33.6 g/dL (28.0-37.0); MCV 90.7 fL (80.0-100.0); RBC 4.4 mil/uL (4.50-6.00); WBC 8.4 thou/uL (4.0-11.0)
[2017-02-02 09:53] LABS: ALBUMIN 2.5 g/dL (3.4-5.0); CALCIUM 8.9 mg/dL (8.5-10.1); CREATININE 1.5 mg/dL (0.7-1.3); POTASSIUM 3.5 mmol/L (3.5-5.1); TOTAL BILIRUBIN 0.6 mg/dL (<0.1-1.0)
[2017-02-02 15:50] VITALS: BP 160/70
[2017-02-02 20:00] VITALS: BP 120/53; BP 146/86
[2017-02-02 22:00] VITALS: BP 129/67
[2017-02-03 04:30] VITALS: BP 108/46
[2017-02-03 07:14] VITALS: BP 106/69
[2017-02-03] MEDS ORDERED: AUGMENTIN 875875 MG PO (07:46)
[2017-02-03 12:16] VITALS: BP 115/59
[2017-02-03] MEDS ORDERED: MYRBETRIQ50 MG PO (12:53)
== END 2017-02-03 19:00 | DRG 193 ==
LOC: ER 09:32 → ICU 12:11 → EROBS 12:11 → 4E 12:11 → ICU 12:39 → 4E 22:16
PROVIDERS: Family Medicine; Nurse Practitioner Adult Health; Physician Assistant; Psychiatry & Neurology Neurology
PROC: 0DJD8ZZ Inspection of Lower Intestinal Tract, Via Natural or Artificial Opening Endoscopic (ICD-10-PCS; principal; 2017-02-02)
DX: J18.9 Pneumonia, unspecified organism (principal); E43 Unspecified severe protein-calorie malnutrition; K92.2 Gastrointestinal hemorrhage, unspecified; I50.30 Unspecified diastolic (congestive) heart failure; K63.3 Ulcer of intestine; R45.851 Suicidal ideations; K64.8 Other hemorrhoids; I73.9 Peripheral vascular disease, unspecified; I87.2 Venous insufficiency (chronic) (peripheral); E78.5 Hyperlipidemia, unspecified; F41.9 Anxiety disorder, unspecified; I11.0 Hypertensive heart disease with heart failure; G89.29 Other chronic pain; M25.569 Pain in unspecified knee; F32.9 Major depressive disorder, single episode, unspecified; R32 Unspecified urinary incontinence; K59.00 Constipation, unspecified; I89.0 Lymphedema, not elsewhere classified; M48.06 Spinal stenosis, lumbar region; R26.9 Unspecified abnormalities of gait and mobility; I25.10 Atherosclerotic heart disease of native coronary artery without angina pectoris; Z95.1 Presence of aortocoronary bypass graft; Z79.82 Long term (current) use of aspirin; Z79.899 Other long term (current) drug therapy; Z83.3 Family history of diabetes mellitus; Z82.3 Family history of stroke; Z82.49 Family history of ischemic heart disease and other diseases of the circulatory system; Z95.820 Peripheral vascular angioplasty status with implants and grafts
CPT/HCPCS: 10183; 10783; 62110; 62900; 70005